=== PATIENT | female | born 1960 | race Caucasian/White ===

== ENCOUNTER 2018-11-03 19:32 | Emergency (ER) | payer BC ==
[2018-11-03] MEDS: Acetaminophen/oxyCODONE 325-5 MG Tab PO ONE ×2 (19:51→20:19)
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
[2018-11-03 20:20] VITALS: BP 148/76
--- NOTE | 2018-11-03 20:38 | CR ---
[id number] RAD/RAD Elbow Right 3V Min Exam: RAD Elbow Right 3V Min Indication:FALL Comparison: No prior imaging for comparison. Discussion: Soft tissue contusion over the posterior and medial aspects of the elbow. No radiographically evident fracture or joint effusion. Ulnotrochlear and radiocapitellar osteoarthritis. Impression: Soft tissue contusion without fracture or joint effusion. Eusebio Montes MD 11/03/18 [id number] Thank you for allowing us to participate in the care of your patient.
[2018-11-03] MEDS ORDERED: Acetaminophen/oxyCODONE 325-5 MG Tab PO ONE (20:43)
== END 2018-11-03 20:55 | disposition home or self-care (01) ==
LOC: KA.ED 19:32
DX: S50.11XA Contusion of right forearm, initial encounter (principal); S50.12XA Contusion of left forearm, initial encounter; I10 Essential (primary) hypertension; Z79.899 Other long term (current) drug therapy; W19.XXXA Unspecified fall, initial encounter; Y92.096 Garden or yard of other non-institutional residence as the place of occurrence of the external cause
CPT/HCPCS: 73080-50; 99283-25; A9270-GY